=== PATIENT | female | born 1965 | race Caucasian/White ===

== ENCOUNTER 2018-04-15 20:41 | Emergency (ER) | payer MEDICAID ==
--- NOTE | 2018-04-15 21:49 | ED Physician Chart ---
ED Chief Complaint/HPI - Patient Information Date Seen:: 04/15/18 Time Seen:: 21:24 Chief Complaint:: rt flank pain and hematuria History of Present Illness:: 53 yr old feMALE with rt flank pain today sharp stabbing pains rt flank no fever or dysuria no n,v,diarhea Allergies:: Allergies Allergy/AdvReac Type Severity Reaction Status Date / Time No Known Allergies Allergy Verified 04/15/18 20:57 Vitals:: Vital Signs - 8 hr 04/15/18 20:45 Temp 98.7 F HR 70 RR 20 BP 142/110 O2 Sat % 96 ED Review of Systems - Review of Systems General/Constitutional: No fever, No chills, No weight loss, No weakness, No diaphoresis, No edema, No loss of appetite Skin: No skin lesions, No rash, No bruising Head: No headache, No light-headedness Eyes: No loss of vision, No pain, No diplopia ENT: No earache, No nasal drainage, No sore throat, No tinnitus Neck: No neck pain, No swelling, No thyromegaly, No stiffness, No mass noted Cardio Vascular: No chest pain, No palpitations, No PND, No orthopnea, No edema Pulmonary: No SOB, No cough, No sputum, No wheezing GI: No nausea, No vomiting, No diarrhea, No pain, No melena, No hematochezia, No constipation, No hematemesis G/U: Hematuria Musculoskeletal: No bone or joint pain, No back pain, No muscle pain Endocrine: No polyuria, No polydipsia Psychiatric: No prior psych history, No depression, No anxiety, No suicidal ideation Hematopoietic: No bruising, No lymphadenopathy Allergic/Immuno: No urticaria, No angioedema Neurological: No syncope, No focal symptoms, No weakness, No paresthesia, No headache, No seizure, No dizziness, No confusion, No vertigo ED Past Medical History - Past Medical History Past Medical History: No significant medical hx Family Medical History - Family Member Mother History Unknown: Yes Ethnicity: Non- ED Physical Exam - Physical Examination Other Gen/Cons comments:: moderate distress secondary to rt flank pain no suprapubic tend no cva tend and urine is light reddish ED Assessment - Assessment General Assessment: hematuria flank pain rt ED Septic Shock - . Is Septic Shock (SBP<90, OR Lactate>4 mmol\L) present?: No - <6hrs of presentation: Vital Signs: Vital Signs - 8 hr 04/15/18 20:45 Temp 98.7 F HR 70 RR 20 BP 142/110 O2 Sat % 96 ED Reassessment (Disposition) - Reassessment Reassessment Condition:: Improved - Diagnosis Diagnosis:: rt neprolithiasis - Aftercare/Follow up Instructions Aftercare/Follow-Up Instructions:: Counseled pt regarding lab results/diagnosis & need follow up - Patient Disposition Condition at Disposition:: Stable
[2018-04-15] MEDS ORDERED: Sodium Chloride 0.9% 1,000 ML IV ONE (21:52)
[2018-04-15 22:09] LABS: HEMOGLOBIN 11.7 gm/dL (12-16); MEAN CELL VOLUME 87.7 fl (81-100); MEAN CORPUSCULAR HEMOGLOBIN 30.2 pg (27.0-31.0); MEAN CORPUSCULAR HGB CONC 34.5 pg (28.0-36.0); MEAN PLATELET VOLUME 7.3 fl; PLATELET COUNT 289 Th/cmm (150-400); RED BLOOD COUNT 3.87 Mil/cmm (3.80-5.10); RED CELL DISTRIBUTION WIDTH 11.7 % (11.5-20.0); WHITE BLOOD COUNT 5.5 Th/cmm (4.8-10.8)
[2018-04-15 22:21] LABS: ALB/GLOB RATIO 1.7 (1.0-1.8); ALBUMIN 4.1 gm/dL (3.7-5.3); ALKALINE PHOSPHATASE 52 U/L (34-104); ANION GAP 12.8 (7.0-16.0); BILIRUBIN,TOTAL 0.2 mg/dL (0.3-1.0); BUN - UREA NITROGEN 26 mg/dL (7-25); CALCIUM SERUM 9.2 mg/dL (8.6-10.3); CARBON DIOXIDE 23.9 mEq/L (21.0-31.0); CHLORIDE 108 mEq/L (98-107); CREATININE - SERUM 0.9 mg/dL (0.6-1.2); GFR AFRICAN-AMERICAN > 60.0 ml/min (>90); GFR NON AFRICAN-AMERICAN > 60.0 ml/min; GLUCOSE 159 mg/dL (70-105); POTASSIUM SERUM 3.7 mEq/L (3.5-5.1); SGOT 15 U/L (13-39); SGPT/ALT 20 U/L (7-52); SODIUM SERUM 141 mEq/L (136-145); TOTAL PROTEIN,SERUM 6.5 gm/dL (6.0-8.3)
[2018-04-15 22:58] LABS: URINE MICROSCOPIC INDICATED? YES; URINE SOURCE CLEAN C
[2018-04-15 23:01] LABS: URINE BLOOD LARGE (NEGATIVE); URINE GLUCOSE (UA) 100 mg/dL (NEGATIVE); URINE KETONE NEGATIVE (NEGATIVE); URINE LEUKOCYTE ESTERASE TRACE (NEGATIVE); URINE NITRATE POSITIVE (NEGATIVE); URINE PROTEIN 30 mg/dL (NEGATIVE)
[2018-04-15 23:04] LABS: URINE CLARITY HAZY (CLEAR)
[2018-04-15 23:06] LABS: URINE COLOR ORANGE
[2018-04-15 23:07] LABS: URINE BILIRUBIN NEGATIVE (NEGATIVE)
[2018-04-15] MEDS ORDERED: cefTRIAXone 2 GM in Sodium Chloride 0.9% 100 ML IV ONE (23:17)
[2018-04-15 23:26] LABS: URINE BACTERIA FEW /hpf (NONE SEEN); URINE EPITHELIAL CELLS FEW /lpf (FEW)
[2018-04-15 23:42] LABS: BAND NEUTROPHILE 2 % (0-10); EOSINOPHIL 2 % (0-5); LYMPHOCYTE 56 % (20-50); MONOCYTE 6 % (2-10); NEUTROPHILS 34 % (40-80); PLATELET ESTIMATE ADEQUATE (NORMAL)
--- NOTE | 2018-04-16 08:42 | Diagnostic Imaging Report ---
Exam: Ultrasound summation abdomen HISTORY: Flank pain Findings: Real-time ultrasound examination of the abdomen was performed multiple planes. No prior studies available comparison. The study demonstrates hepatomegaly. The liver measures 20 cm in span. The gallbladder is contracted. The common bile duct measures 3.3 mm. There is no evidence for pericholecystic fluid collection of gallbladder wall thickening. The pancreas is poorly seen. There is no evidence of obstructive uropathy or nephrolithiasis. The spleen is intact no free fluid is noted. IMPRESSION: Hepatomegaly. Contracted gallbladder, no evidence for cholelithiasis.
== END 2018-04-16 00:37 | disposition home or self-care (01) ==
LOC: ER 20:41
DX: N20.0 Calculus of kidney (principal)
CPT/HCPCS: 99285; 96365; 96375; 76700; 36415; 85007; 85025; 87086; 81001; 80053; J1885; J0696; J7030